=== PATIENT | male | born 1955 | race Asian ===

== ENCOUNTER → 2016-10-24 | Outpatient (CLI) | payer MEDICAID | LOC: BRMIMAGING 12:44 | PROVIDERS: ATTEND Family Medicine | DX: J40 Bronchitis, not specified as acute or chronic (principal) | CPT/HCPCS: 71020-PO ==

== ENCOUNTER → 2017-05-12 | Outpatient (CLI) | payer MEDICAID | LOC: BRMIMAGING 08:45 | PROVIDERS: ATTEND Family Medicine | DX: M25.551 Pain in right hip (principal) | CPT/HCPCS: 73521-PO ==

== ENCOUNTER → 2018-04-05 | Outpatient (CLI) | payer MEDICAID | LOC: BRMIMAGING 15:04 | PROVIDERS: ATTEND Family Medicine | DX: M17.11 Unilateral primary osteoarthritis, right knee (principal) | CPT/HCPCS: 73562-PO ==